=== PATIENT | female | born 1990 | race Caucasian/White ===

== ENCOUNTER 2017-06-19 20:07 | Emergency (ER) | payer MEDICAID ==
[~2017-06-19] VITALS: Ht 175.3 cm; Wt 64.1 kg
[2017-06-19 20:14] VITALS: BP 127/78; PULSE 115; RESP 20; TEMP 97.9; O2SAT 98
[2017-06-19] MEDS ORDERED: TETANUS/DIPHTHERIA TOXOID ADULT 0.5 ML VIAL IM ONE (21:15)
--- NOTE | 2017-06-19 21:20 | PD ---
HPI Chief Complaint: Laceration/Skin Injury Time Seen by Provider: 21:13 Travel History International Travel<30 days: No Contact w/Intl Traveler<30days: No Traveled to known affect area: No History of Present Illness HPI 27-year-old female presents to the emergency room for evaluation of laceration to the right palmar hand that occurred just prior to arrival. Patient was using the side of the boat to stabilize her paddle board when she lost her balance and slid down the boat catching her hand on a tiburcio nail. She went to an urgent care who recommended she come to the emergency room. Patient denies paresthesias or loss of range of motion. Last tetanus was 5 years ago. [facility] Past Medical History Medical History: Denies Significant Hx Diminished Hearing: No Tetanus Vaccination: < 5 Years Influenza Vaccination: No ?: Not LMP: 3 WEEKS AGO Past Surgical History Section: Yes Social History Alcohol Use: Yes (Occ.) Tobacco Use: No (1 PPD) Substance Use: No Allergies-Medications (Allergen,Severity, Reaction): Coded Allergies: No Known Allergies (Verified , 06/19/17) Reported Meds & Prescriptions Reported Meds & Active Scripts Active Doxycycline Hyclate 100 Mg Cap 100 Mg PO BID Keflex (Cephalexin) 500 Mg Capsule 500 Mg PO Q6H 7 Days Review of Systems Except as stated in HPI: all other systems reviewed are Neg Physical Exam Narrative GENERAL: Well-nourished, well-developed female in no acute distress. Afebrile. Ambulatory. SKIN: Focused skin assessment warm/dry. There is a 8 cm laceration from the wrist to between the third and fourth digits on the volar right hand. Laceration doesn't extend through the fatty tissue. No tendon or neurovascular injury. HEAD: Normocephalic. EYES: No scleral icterus. No injection or drainage. NECK: Supple, trachea midline. No JVD or lymphadenopathy. CARDIOVASCULAR: Regular rate and rhythm without murmurs, gallops, or rubs. RESPIRATORY: Breath sounds equal bilaterally. No accessory muscle use. MUSCULOSKELETAL: No cyanosis, or edema. Full range motion of the right hand. BACK: Nontender without obvious deformity. No CVA tenderness. Data Data Last Documented VS Vital Signs Date Time Temp Pulse Resp B/P Pulse Ox O2 Delivery O2 Flow Rate FiO2 06/19/17 20:14 97.9 115 20 127/78 98 Orders Tetanus/Diphtheria Tox Adult (Tetanus/Di (06/19/17 21:15) MDM Medical Decision Making Medical Screen Exam Complete: Yes Emergency Medical Condition: Yes Medical Record Reviewed: Yes Differential Diagnosis Laceration, abrasion, tendon injury Narrative Course 27-year-old female presents to the emergency room for evaluation of laceration to her right palmar hand that occurred just prior to arrival. Patient cut herself on a tiburcio nail in dirty canal water. Tetanus was updated. The wound was thoroughly irrigated and then cleansed. It was repaired, see procedure note for details. Patient discharged with wound care instructions and prescriptions for doxycycline and Keflex. Told to follow-up with a primary care physician or return for worsening symptoms. She understands and agrees to plan. Procedures Procedure Narrative LACERATION LOCATION: Right palm LENGTH: 8 cm NUMBER OF STITCHES/ANNETTE: 11 simple interrupted REPAIR: The area of the laceration was prepped with Betadine and sterilely draped. The laceration was infiltrated with 1% lidocaine. The wound was copiously irrigated and explored without evidence of foreign body, tendon injury or neurovascular injury. The wound was closed using 5-0 Prolene. This was a single layer repair. A sterile dressing was applied. The patient was advised to keep the dressing clean and dry. Patient tolerated the procedure well. Diagnosis Primary Impression: Laceration of right hand Qualified Code: S61.411A - Laceration of right hand without foreign body, initial encounter Referrals: Primary Care Physician Patient Instructions: General Instructions, Laceration (ED) Departure Forms: Tests/Procedures, Work Release Enter return to work date: Jun 25, 2017 Additional Instructions: Rest and drink plenty of fluids. Keep wound clean and dry. Apply triple antibiotic ointment daily. Sutures out in 10 days. Antibiotics as directed, until gone. Doxycycline will make you burn in the sun. Follow-up with a primary care physician. Return to the emergency room for worsening symptoms. Scripts Doxycycline Hyclate 100 Mg [id number] Mg PO BID #14 CAP Ref 0 Prov:Oneyda Barkley MD 06/19/17 Cephalexin (Keflex)500 Mg [id number] Mg PO Q6H 7 Days Ref 0 Prov:Oneyda Barkley MD 06/19/17 Disposition: 01 DISCHARGE HOME Condition: Stable Lisa Simms Jun 19, 2017 21:20
[2017-06-19] MEDS ORDERED: CEPH-460 PO (22:05)
[2017-06-19] MEDS ORDERED: DOXY100C PO (22:05)
== END 2017-06-19 22:20 | disposition home or self-care (01) ==
LOC: PHEFT 20:07
DX: S61.411A Laceration without foreign body of right hand, initial encounter (principal); Z23 Encounter for immunization; W45.0XXA Nail entering through skin, initial encounter; Y93.16 Activity, rowing, canoeing, kayaking, rafting and tubing; Y99.8 Other external cause status
CPT/HCPCS: 12004; 90471; 90714